=== PATIENT | female | born 1945 ===

== ENCOUNTER 2017-06-29 08:50 | Observation (INO) | payer OTHER ==
--- NOTE | 2017-06-29 09:30 | RAD ---
PROCEDURE: CHEST RADIOGRAPH, 1 VIEW HISTORY: SOB COMPARISON: Chest radiograph dated 09/10/2015. FINDINGS: LUNGS: Clear. PLEURA: No pneumothorax or pleural fluid seen. CARDIOVASCULAR: Left subclavian access AICD/ pacemaker redemonstrated. Atherosclerotic aortic calcifications. Cardiomediastinal silhouette stably enlarged. OSSEOUS STRUCTURES: Unchanged. VISUALIZED UPPER ABDOMEN: Normal. OTHER FINDINGS: None. IMPRESSION: No active disease.
[2017-06-29 09:43] LABS: BASO % 0.5 % (0.0-2.0); EOS # 0.1 K/uL (0.0-0.7); EOS % 1.8 % (0.0-4.0); HEMOGLOBIN 11.5 g/dL (11.0-16.0); LYMPH # 1.6 K/uL (1.0-4.3); LYMPH % 25.1 % (20.0-40.0); MEAN CELL VOLUME 84.6 fL (81.0-99.0); MEAN CORPUSCULAR HEMOGLOBIN 29.1 pg (27.0-31.0); MEAN CORPUSCULAR HGB CONC 34.4 g/dL (33.0-37.0); MEAN PLATELET VOLUME 9.6 fL (7.2-11.7); MONO # 0.6 K/uL (0.0-0.8); MONO % 8.7 % (0.0-10.0); NEUT # 4.1 K/uL (1.8-7.0); NEUT % 63.9 % (50.0-75.0); NRBC % 0.1 % (0.0-2.0); RBC 3.96 Mil/uL (3.80-5.20); WHITE BLOOD COUNT 6.5 K/uL (4.8-10.8)
[2017-06-29 09:55] LABS: ALB/GLOB RATIO 1.4 (1.0-2.1); ALBUMIN 4.6 g/dL (3.5-5.0); ALT/SGPT 30 U/L (9-52); AST/SGOT 40 U/L (14-36); BLOOD UREA NITROGEN 17 mg/dL (7-17); CALCIUM 10.1 mg/dl (8.6-10.4); GFR AFRICAN-AMERICAN > 60; GFR NON-AFRICAN AMERICAN > 60
[2017-06-29 10:04] LABS: B-TYPE NATRIURETIC PEPTIDE 678 pg/mL (0-900)
--- NOTE | 2017-06-29 10:25 | C.PDOC ---
History Of Present Illness 72yo female, with history of CHF, hypertension, high cholesterol, presents to ED with complaints of chest discomfort, and shortness of breath for the past day. She is also complaining of knee pain, which is chronic and is currently under the care of a specialist for pain management. She denies any weakness, lightheadedness, and offers no additional medical complaints. PMD: Time Seen by Provider: 06/29/17 09:06 Chief Complaint (Nursing): Chest Pain History Per: Patient History/Exam Limitations: no limitations Onset/Duration Of Symptoms: Days (1) Current Symptoms Are (Timing): Still Present Past Medical History Reviewed: Historical Data, Nursing Documentation, Vital Signs Vital Signs: Last Vital Signs Temp 98.2 F 06/29/17 09:15 Pulse 71 06/29/17 10:48 Resp 12 06/29/17 10:48 BP 137/77 06/29/17 10:48 Pulse Ox 97 06/29/17 10:48 - Medical History PMH: CHF, HTN, Hypercholesterolemia Surgical History: Pacemaker Family History: States: No Known Family Hx - Social History Hx Alcohol Use: No Hx Substance Use: No - Immunization History Hx Tetanus Toxoid Vaccination: No Hx Influenza Vaccination: No Hx Pneumococcal Vaccination: No Review Of Systems Except As Marked, All Systems Reviewed And Found Negative. Constitutional: Negative for: Fever, Chills Cardiovascular: Positive for: Chest Pain Respiratory: Positive for: Shortness of Breath Musculoskeletal: Positive for: Other (knee pain, chronic) Neurological: Negative for: Weakness Physical Exam - Physical Exam Appears: Non-toxic, No Acute Distress Skin: Normal Color, Warm, Dry Head: Atraumatic, Normacephalic Eye(s): bilateral: Normal Inspection Neck: Normal ROM, Supple Chest: Symmetrical Cardiovascular: Rhythm Regular Respiratory: Normal Breath Sounds Extremity: Normal ROM, No Pedal Edema, Other (bilateral knees w/o effusion, nontender as well) Neurological/Psych: Oriented x3, Other (anxious affect) ED Course And Treatment - Laboratory Results Result Diagrams: 06/29/17 09:32 06/29/17 09:32 Lab Interpretation: Normal (trop neg.) ECG: Interpreted By Me ECG Rhythm: Sinus Rhythm, AV Paced ECG Interpretation: Normal Rate From EC O2 Sat by Pulse Oximetry: 96 (RA) Pulse Ox Interpretation: Normal - Radiology CXR: Interpreted by Me CXR Interpretation: Yes: No Acute Disease Reevaluation Time: 10:23 Reassessment Condition: Improved - Physician Consult Information Outcome Of Conversation: 1015: d/w Dr. Santos- Hospitalist covering Clinic pts, ok to admit. Medical Decision Making Medical Decision Making: chest discomfort chronic knee pain L>R Disposition Doctor Will See Patient In The: Hospital Counseled Patient/Family Regarding: Studies Performed, Diagnosis - Disposition Disposition: HOSPITALIZED Disposition Time: 10:24 Condition: GOOD - Clinical Impression Clinical Impression: Chest discomfort, Chronic knee pain - Scribe Statement The provider has reviewed the documentation as recorded by the Scribe (Jackie Brito) Provider Attestation: All medical record entries made by the Scribe were at my direction and personally dictated by me. I have reviewed the chart and agree that the record accurately reflects my personal performance of the history, physical exam, medical decision making, and the department course for this patient. I have also personally directed, reviewed, and agree with the discharge instructions and disposition.
--- NOTE | 2017-06-29 10:32 | CP.PCM.HP ---
History of Present Illness - History of Present Illness History of Present Illness: CC: left leg pain x3 weeks HPI: 72-year-old female presents to the ED for evaluation of left lower extremity pain. She states she fell from standing height on a wet floor 3 weeks ago while in [place], went to the ED where they took x-rays. Per patient, she states x-rays were normal. She was referred to a specialist at that time, but was unable to follow up since she returned to the [facility] on June 18. Pain is located in left lower extremity and lumbar back. Patient rates pain 10/10, which is relieved with ibuprofen and rest and exacerbated with activity. She states the pain has caused issues with her walking, denies use of assistive walking device. She states she also gets chest pain when the pain in the leg/back worsen. Reports feelings of anxiety/nervousness related to her leg pain causing her to have chest pain. Denies fever/chills, palpitations, dyspnea, abdominal pain, nausea/vomiting, diarrhea/constipation, numbness/ tingling in extremities. PMD: Dr. Romero Past medical history: HTN, HLD, CHF, arthritis Past surgical history: hysterectomy, cataracts, ankle repair, Pacemaker battery replacement on 07/21/15; Pacemaker repositioning to L upper Chest on 09/12/15 Medications: patient states she uses [facility]. Per pharmacy patient has not refilled her medications since January 2017. Simvastatin 5mg daily; Famotidine 20mg bid; Lisinopril 20mg daily; Clopidogrel 75mg daily; Allergies: NKDA Family history: denies family history of cancer; mother and father both have history of heart disease Social history: former smoker, 3ppd, quit 25 years ago; denies alcohol or drug use Present on Admission - Present on Admission Any Indicators Present on Admission: No Review of Systems - Constitutional Constitutional: absent: Chills, Fever - Cardiovascular Cardiovascular: Chest Pain. absent: Dyspnea, Palpitations, Pedal Edema, Syncope - Respiratory Respiratory: absent: Dyspnea - Gastrointestinal Gastrointestinal: absent: Abdominal Pain, Constipation, Diarrhea, Nausea, Vomiting - Genitourinary Genitourinary: absent: Dysuria - Musculoskeletal Musculoskeletal: Abnormal Gait, Back Pain, Joint Swelling, Limited Range of Motion. absent: Numbness, Tingling - Neurological Neurological: absent: Dizziness, Numbness, Tingling Past Patient History - Past Medical History & Family History Past Medical History?: Yes - Past Social History Smoking Status: Never Smoked - CARDIAC Hx Congestive Heart Failure: Yes Hx Hypercholesterolemia: Yes Hx Hypertension: Yes Hx Pacemaker: Yes - NEUROLOGICAL Hx Neurological Disorder: Yes Hx Vertigo: Yes - MUSCULOSKELETAL/RHEUMATOLOGICAL Hx Falls: No - PSYCHIATRIC Hx Substance Use: No - SURGICAL HISTORY Hx Surgeries: Yes Hx Hysterectomy: Yes Other/Comment: Pacemaker insertion. - ANESTHESIA Hx Anesthesia: Yes Hx Anesthesia Reactions: No Hx Malignant Hyperthermia: No Meds Allergies/Adverse Reactions: Allergies Allergy/AdvReac Type Severity Reaction Status Date / Time No Known Allergies Allergy Verified 09/05/15 13:56 Physical Exam - Constitutional Appears: Non-toxic, In Acute Distress - Head Exam Head Exam: ATRAUMATIC, NORMAL INSPECTION - Eye Exam Eye Exam: EOMI, Normal appearance, PERRL. absent: Scleral icterus Pupil Exam: NORMAL ACCOMODATION - ENT Exam ENT Exam: Mucous Membranes Moist - Respiratory Exam Respiratory Exam: Clear to Auscultation Bilateral, NORMAL BREATHING PATTERN. absent: Rales, Rhonchi, Wheezes, Stridor - Cardiovascular Exam Cardiovascular Exam: REGULAR RHYTHM, +S1, +S2 Additional comments: Pacemaker on the right upper side of the chest - GI/Abdominal Exam GI & Abdominal Exam: Normal Bowel Sounds, Soft. absent: Tenderness - Extremities Exam Extremities exam: Positive for: normal capillary refill, tenderness (left knee tenderness ), pedal pulses present. Negative for: full ROM (decreased left lower extremity ROM), joint swelling, pedal edema - Neurological Exam Neurological exam: Alert, Oriented x3 - Psychiatric Exam Psychiatric exam: Anxious, Normal Affect - Skin Skin Exam: Normal Color Results - Vital Signs Recent Vital Signs: Last Vital Signs Temp Pulse Resp BP Pulse Ox 96 06/29/17 10:24 - Labs Result Diagrams: 06/29/17 09:32 06/29/17 16:47 Labs: Laboratory Results - last 24 hr 06/29/17 06/29/17 09:32 09:32 WBC 6.5 RBC 3.96 Hgb 11.5 Hct 33.5 L MCV 84.6 MCH 29.1 MCHC 34.4 RDW 15.0 H Plt Count 119 L D MPV 9.6 Neut % (Auto) 63.9 Lymph % (Auto) 25.1 [place] % (Auto) 8.7 Eos % (Auto) 1.8 Baso % (Auto) 0.5 Neut # (Auto) 4.1 Lymph # (Auto) 1.6 [place] # (Auto) 0.6 Eos # (Auto) 0.1 Baso # (Auto) 0.0 Sodium 143 Potassium 5.5 H Chloride 109 H Carbon Dioxide 26 Anion Gap 14 BUN 17 Creatinine 0.9 Est GFR ( Amer) > 60 Est GFR (Non-Af Amer) > 60 Random Glucose 103 Calcium 10.1 Total Bilirubin 1.2 AST 40 H ALT 30 Alkaline Phosphatase 94 Troponin I 0.0130 NT-Pro-B Natriuret Pep 678 Total Protein 7.9 Albumin 4.6 Globulin 3.3 Albumin/Globulin Ratio 1.4 Assessment & Plan - Assessment and Plan (Free Text) Assessment: 72-year-old female with past medical history of HTN, HLD, CHF with pain in LLE, lumbar region, chest pain 1.) Left lower extremity/hip/lumbar pain - Hip x-ray 3 view bilateral: No demonstrated fracture or dislocation. Mild bilateral hip degenerative changes. - Lumbar spine x-ray: No acute fracture. Mild degenerative changes. - Left knee x-ray 3 view: No demonstrated fracture or dislocation. Degenerative changes. - f/u bone density - Medications * Toradol 30mg IVP Q6 PRN - f/u PT recommendations 2.) History of CHF - Chest x-ray: No active disease. - Troponin negative x2 - Pacemaker [address] Redman - Echo (07/25) EF 20% - Pro-BNP 678 - Medications * Plavix 75mg PO QD * Since patient has not refilled medications since January - started patient on Lisinopril 10mg PO QD 3.) History of HTN - Lisinopril 10mg daily 4.) History of CAD - f/u lipid panel - Medications * Crestor 5mg PO QHS * Plavix 75mg PO QD 5.) History of CAD - Crestor 20 mg po HS 6.) Thrombocytopenia - Platelets 119 - Continue to Monitor 7.) Hyperkalemia - K 5.5 --> 5.6 - Kayexalate 15gm given once - f/u CMP in the AM 8.) Prophylaxis - Pepcid 20mg PO QD - Heparin 5000u SC Q8 - Heart healthy diet - SCDs - PT evaluation Case discussed with Dr. Tierney Kaba PGY-1
--- NOTE | 2017-06-29 14:54 | RAD ---
PROCEDURE: Left Knee Radiographs. HISTORY: Pain. COMPARISON: None. FINDINGS: BONES: Osteopenia. No acute fracture. JOINTS: Mild tricompartmental narrowing with mild degenerative spurring. JOINT EFFUSION: None. OTHER FINDINGS: Quadriceps tendon enthesophyte. IMPRESSION: No demonstrated fracture or dislocation. Degenerative changes.
--- NOTE | 2017-06-29 14:55 | RAD ---
PROCEDURE: Radiographs of the Lumbar Spine. HISTORY: lower back pain COMPARISON: CT scan of the abdomen pelvis dated 09/06/2015. FINDINGS: BONES: Normal alignment. No listhesis. No fracture. DISC SPACES: Mild disc space. OTHER FINDINGS: None. IMPRESSION: No acute fracture. Mild degenerative changes.
--- NOTE | 2017-06-29 14:56 | RAD ---
PROCEDURE: Radiographs of the pelvis and bilateral hips HISTORY: hip pain COMPARISON: CT scan of the abdomen and pelvis dated 09/06/2015. FINDINGS: BONES: Pelvis: No acute fracture. Right hip:No acute fracture. Small ossicles near the right acetabulum. Left hip:No acute fracture. JOINTS: Right hip: Mild narrowing. Left hip: Mild narrowing. Sacroiliac Joints: Unremarkable. Pubic symphysis: Unremarkable. SOFT TISSUES: Normal. OTHER FINDINGS: None. IMPRESSION: No demonstrated fracture or dislocation. Mild bilateral hip degenerative changes.
[2017-06-29] MEDS ORDERED: Sod Polystyrene Sulf 15 gm/60 ml Susp PO ONE (19:19)
[2017-06-30 01:09] VITALS: RESP 20
[2017-06-30 08:20] LABS: BASO % 0.5 % (0.0-2.0); EOS # 0.1 K/uL (0.0-0.7); HEMOGLOBIN 11.3 g/dL (11.0-16.0); LYMPH # 1.6 K/uL (1.0-4.3); LYMPH % 25.4 % (20.0-40.0); MEAN CELL VOLUME 85.5 fL (81.0-99.0); MEAN CORPUSCULAR HEMOGLOBIN 29.1 pg (27.0-31.0); MEAN PLATELET VOLUME 10.4 fL (7.2-11.7); MONO # 0.5 K/uL (0.0-0.8); MONO % 7.6 % (0.0-10.0); NEUT # 4.1 K/uL (1.8-7.0); NEUT % 64.5 % (50.0-75.0); NRBC % 0.1 % (0.0-2.0); RBC 3.9 Mil/uL (3.80-5.20); RED CELL DISTRIBUTION WIDTH 15.2 % (11.5-14.5); WHITE BLOOD COUNT 6.3 K/uL (4.8-10.8)
[2017-06-30 08:33] LABS: ALB/GLOB RATIO 1.3 (1.0-2.1); ALBUMIN 4.4 g/dL (3.5-5.0); ALT/SGPT 27 U/L (9-52); AST/SGOT 34 U/L (14-36); BLOOD UREA NITROGEN 24 mg/dL (7-17); CALCIUM 9.5 mg/dl (8.6-10.4); GFR AFRICAN-AMERICAN > 60; GFR NON-AFRICAN AMERICAN 54; HDL CHOLESTEROL 58 mg/dL (30-70)
[2017-06-30 08:43] LABS: LDL CHOLESTEROL 101 mg/dL (0-129)
--- NOTE | 2017-06-30 12:17 | CARD ---
APPROVED REPORT EKG Measurement Heart [id number] <Conclusion> Atrial-sensed ventricular-paced rhythm Abnormal ECG
--- NOTE | 2017-06-30 14:03 | CP.PCM.DIS ---
Provider - Provider Date of Admission: 06/29/17 10:21 Attending physician: Lashonda Monet MD Time Spent in preparation of Discharge (in minutes): 40 Hospital Course - Lab Results Lab Results: Most Recent Lab Values WBC 6.3 K/uL (4.8-10.8) 06/30/17 08:09 RBC 3.90 Mil/uL (3.80-5.20) 06/30/17 08:09 Hgb 11.3 g/dL (11.0-16.0) 06/30/17 08:09 Hct 33.3 % (34.0-47.0) L 06/30/17 08:09 MCV 85.5 fL (81.0-99.0) 06/30/17 08:09 MCH 29.1 pg (27.0-31.0) 06/30/17 08:09 MCHC 34.0 g/dL (33.0-37.0) 06/30/17 08:09 RDW 15.2 % (11.5-14.5) H 06/30/17 08:09 Plt Count 118 K/uL (130-400) L 06/30/17 08:09 MPV 10.4 fL (7.2-11.7) 06/30/17 08:09 Neut % (Auto) 64.5 % (50.0-75.0) 06/30/17 08:09 Lymph % (Auto) 25.4 % (20.0-40.0) 06/30/17 08:09 [place] % (Auto) 7.6 % (0.0-10.0) 06/30/17 08:09 Eos % (Auto) 2.0 % (0.0-4.0) 06/30/17 08:09 Baso % (Auto) 0.5 % (0.0-2.0) 06/30/17 08:09 Neut # (Auto) 4.1 K/uL (1.8-7.0) 06/30/17 08:09 Lymph # (Auto) 1.6 K/uL (1.0-4.3) 06/30/17 08:09 [place] # (Auto) 0.5 K/uL (0.0-0.8) 06/30/17 08:09 Eos # (Auto) 0.1 K/uL (0.0-0.7) 06/30/17 08:09 Baso # (Auto) 0.0 K/uL (0.0-0.2) 06/30/17 08:09 Differential Comment 06/29/17 09:32 Sodium 140 mmol/L (132-148) 06/30/17 08:09 Potassium 5.0 mmol/L (3.6-5.2) 06/30/17 08:09 Chloride 107 mmol/L (98-107) 06/30/17 08:09 Carbon Dioxide 25 mmol/L (22-30) 06/30/17 08:09 Anion Gap 14 (10-20) 06/30/17 08:09 BUN 24 mg/dL (7-17) H 06/30/17 08:09 Creatinine 1.0 mg/dL (0.7-1.2) 06/30/17 08:09 Est GFR ( Amer) > 60 06/30/17 08:09 Est GFR (Non-Af Amer) 54 06/30/17 08:09 Random Glucose 198 mg/dL (65-105) H 06/30/17 08:09 Hemoglobin A1c 7.5 % (4.2-6.5) H 06/30/17 08:09 Calcium 9.5 mg/dl (8.6-10.4) 06/30/17 08:09 Phosphorus 4.1 mg/dL (2.5-4.5) 06/30/17 08:09 Magnesium 1.6 mg/dL (1.6-2.3) 06/30/17 08:09 Total Bilirubin 0.9 mg/dL (0.2-1.3) 06/30/17 08:09 AST 34 U/L (14-36) 06/30/17 08:09 ALT 27 U/L (9-52) 06/30/17 08:09 Alkaline Phosphatase 93 U/L (38-126) 06/30/17 08:09 Troponin I < 0.0120 ng/mL (0.00-0.120) 06/29/17 16:47 NT-Pro-B Natriuret Pep 678 pg/mL (0-900) 06/29/17 09:32 Total Protein 7.7 g/dL (6.3-8.3) 06/30/17 08:09 Albumin 4.4 g/dL (3.5-5.0) 06/30/17 08:09 Globulin 3.3 gm/dL (2.2-3.9) 06/30/17 08:09 Albumin/Globulin Ratio 1.3 (1.0-2.1) 06/30/17 08:09 Triglycerides 159 mg/dL (0-149) H 06/30/17 08:09 Cholesterol 210 mg/dL (0-199) H 06/30/17 08:09 LDL Cholesterol Direct 101 mg/dL (0-129) 06/30/17 08:09 HDL Cholesterol 58 mg/dL (30-70) 06/30/17 08:09 Free T4 0.86 ng/dL (0.78-2.19) 06/30/17 08:09 TSH 3rd Generation 1.19 mIU/L (0.46-4.68) 06/30/17 08:09 - Hospital Course Hospital Course: HPI: 72-year-old female presents to the ED for evaluation of left lower extremity pain. She states she fell from standing height on a wet floor 3 weeks ago while in [facility], went to the ED where they took x-rays. Per patient, she states x-rays were normal. She was referred to a specialist at that time, but was unable to follow up since she returned to the [facility] on June 18. Pain is located in left lower extremity and lumbar back. Patient rates pain 10/10, which is relieved with ibuprofen and rest and exacerbated with activity. She states the pain has caused issues with her walking, denies use of assistive walking device. She states she also gets chest pain when the pain in the leg/back worsen. Reports feelings of anxiety/nervousness related to her leg pain causing her to have chest pain. Denies fever/chills, palpitations, dyspnea, abdominal pain, nausea/vomiting, diarrhea/constipation, numbness/ tingling in extremities. PMD: Dr. Romero Past medical history: HTN, HLD, CHF, arthritis Past surgical history: hysterectomy, cataracts, ankle repair, Pacemaker battery replacement on 07/21/15; Pacemaker repositioning to L upper Chest on 09/12/15 Medications: patient states she uses [facility]. Per pharmacy patient has not refilled her medications since January 2017. Simvastatin 5mg daily; Famotidine 20mg bid; Lisinopril 20mg daily; Clopidogrel 75mg daily; Allergies: NKDA Family history: denies family history of cancer; mother and father both have history of heart disease Social history: former smoker, 3ppd, quit 25 years ago; denies alcohol or drug use Hospital Course: During patient's hospital course the following images were done: - Hip x-ray 3 view bilateral: No demonstrated fracture or dislocation. Mild bilateral hip degenerative changes. - Lumbar spine x-ray: No acute fracture. Mild degenerative changes. - Left knee x-ray 3 view: No demonstrated fracture or dislocation. Degenerative changes. Patient was given Toradol 30mg q6h as needed for pain. Patient had been away in the [facility] [place] since January 2017 so she stated she had been getting her medications there. Patient was restarted on her home medications which were confirmed with her pharmacy ([facility] ). Patient was also seen by physical therapy and they recommended her to use a rolling walker and have physical therapy. Discussed with patient the importance of her to make an appointment in the clinic for her chronic health conditions, physical therapy referral and to have a bone density exam done as an outpatient. Patient states she understands and will follow up in 1 week. Patient is stable for discharge home. 1.) Tylenol 650mg ruben tableta cada 6 horas para el dolor 2.) Lisinopril 10mg ruben tableta por gopi 3.) Simvastatin 5mg ruben tableta en la noche 4.) Famotidine 20mg ruben tableta dos veces al da 5.) Clopidogrel 75mg daily ruben tableta por gopi 6.) Aspirin 81mg ruben tableta por gopi Por favor llame para hacer ruben sedrick: [place] [address] # [phone] Por favor regrese a la linda de emergencias si los sntomas regresan o empeoran. This is a summary of the patient's hospital course, please refer to full EMR for further details. Discharge Exam - Head Exam Head Exam: ATRAUMATIC, NORMAL INSPECTION - Eye Exam Eye Exam: EOMI, Normal appearance - ENT Exam ENT Exam: Mucous Membranes Moist - Respiratory Exam Respiratory Exam: Clear to PA & Lateral, NORMAL BREATHING PATTERN - Cardiovascular Exam Cardiovascular Exam: REGULAR RHYTHM, +S1, +S2 Additional comments: Pacemaker on the right upper side of the chest - GI/Abdominal Exam GI & Abdominal Exam: Normal Bowel Sounds, Soft. absent: Tenderness - Extremities Exam Extremities exam: normal capillary refill, tenderness (left knee tenderness), pedal pulses present Additional comments: decreased left lower extremity ROM - Neurological Exam Neurological exam: Alert, Oriented x3 - Psychiatric Exam Psychiatric exam: Normal Affect - Skin Skin Exam: Normal Color Discharge Plan - Discharge Medications Prescriptions: Acetaminophen [Tylenol 325mg tab] 650 mg PO Q6 PRN #30 tab PRN Reason: Pain, Moderate (4-7) Clopidogrel [Plavix] 75 mg PO DAILY #30 tab Famotidine [Pepcid] 20 mg PO DAILY #60 tab Lisinopril [Zestril] 10 mg PO DAILY #30 tab Rosuvastatin Calcium 5 mg PO HS #30 tablet - Follow Up Plan Condition: GOOD Disposition: HOME/ ROUTINE Instructions: Heart Healthy Diet, Chest Pain (DC), Chronic Knee Pain (DC), Acetaminophen, Clopidogrel, Famotidine, Lisinopril, Rosuvastatin Additional Instructions: Patient is stable for discharge home. 1.) Tylenol 650mg ruben tableta cada 6 horas para el dolor 2.) Lisinopril 10mg ruben tableta por gopi 3.) Simvastatin 5mg ruben tableta en la noche 4.) Famotidine 20mg ruben tableta dos veces al da 5.) Clopidogrel 75mg daily ruben tableta por gopi 6.) Aspirin 81mg ruben tableta por gopi Por favor llame para hacer ruben sedrick: [place] [address] # [phone] Por favor regrese a la linda de emergencias si los sntomas regresan o empeoran. Referrals: [facility] [Outside]
[2017-06-30 16:22] VITALS: BP 104/62; PULSE 77; TEMP 98.2; O2SAT 96
== END 2017-06-30 17:36 | disposition home or self-care (01) ==
LOC: C.ER 08:50 → C.6T 10:21
PROVIDERS: ADMIT Internal Medicine; ATTEND Internal Medicine
DX: R07.89 Other chest pain (principal); E78.5 Hyperlipidemia, unspecified; F41.9 Anxiety disorder, unspecified; G89.29 Other chronic pain; I11.0 Hypertensive heart disease with heart failure; I50.9 Heart failure, unspecified; Z87.891 Personal history of nicotine dependence; Z95.0 Presence of cardiac pacemaker
CPT/HCPCS: 36415; 71045; 72114; 73522; 73562; 80048; 80053; 80061; 83036; 83735; 83880; 84100; 84439; 84443; 84484; 85025; 93005; 97110; 97116; 97162; 97530; 99285; G0378; G8978; G8979; J1644